=== PATIENT | female | born 1935 | race Caucasian/White ===

== ENCOUNTER 2018-05-27 10:07 | Day surgery (SDC) | payer OTHER ==
[2018-05-19 17:00] VITALS: BMI 30.2
[2018-05-27 13:51] VITALS: TEMP 97.8
[2018-05-27 14:05] VITALS: BP 132/86; PULSE 70
--- NOTE | 2018-05-28 11:31 | PATH ---
Surgical Pathology Report Patient Name: KAMLESH MIJARES [facility]. Rec. #: [id number] /Age/Gender: 1935 (Age: 82) / F Account: [id number] Location: Taken: 05/27/2018 Received: 05/27/2018 Reported: 05/28/2018 Physicians: Johnna Miguel M.D. Specimen(s) Received A: BX SIGMOID 30 CM B: BX SIGMOID 20 CM C: RECTO SIGMOID JUNCTION Clinical History History of polyps Postoperative diagnosis: Polyps Final Diagnosis A. SIGMOID, 30 CM, POLYP, POLYPECTOMY: HYPERPLASTIC POLYP. B. SIGMOID, 20 CM, POLYP, POLYPECTOMY: HYPERPLASTIC POLYP. C. RECTOSIGMOID JUNCTION, POLYP, POLYPECTOMY: HYPERPLASTIC POLYP. Electronically Signed Florian Moreira M.D. Gross Description A. Received in formalin, labeled "sigmoid 30 cm" are 5 chavez, irregular portions of soft tissue ranging from 0.2-0.3 cm. in greatest dimension. The specimens are submitted in toto in one cassette. B. Received in formalin, labeled "sigmoid 20 cm" are 2 chavez, irregular portions of soft tissue measuring 0.2 and 0.3 cm. in greatest dimension. The specimens are submitted in toto in one cassette. C. Received in formalin, labeled "rectosigmoid junction" are 2 chavez, irregular portions of soft tissue measuring 0.1 and 0.4 cm. in greatest dimension. The specimens are submitted in toto in one cassette. DL/05/27/2018 saudi/05/27/2018
== END 2018-05-27 13:00 | disposition home or self-care (01) ==
LOC: FASU-ENDO 10:07
PROVIDERS: ATTEND Internal Medicine Gastroenterology
PROC: 0DBN8ZX Excision of Sigmoid Colon, Via Natural or Artificial Opening Endoscopic, Diagnostic (ICD-10-PCS; principal; 2018-05-27 11:35)
DX: Z09 Encounter for follow-up examination after completed treatment for conditions other than malignant neoplasm (principal); Z86.010 Personal history of colon polyps; K63.5 Polyp of colon; K57.30 Diverticulosis of large intestine without perforation or abscess without bleeding; K64.8 Other hemorrhoids
CPT/HCPCS: 88305-TC

== ENCOUNTER 2023-08-22 04:39 | Day surgery (SDC) | payer OTHER ==
[2023-08-20 15:35] VITALS: BMI 31.1
[2023-08-22] MEDS ORDERED: ACETAMINOPHEN 1000 MG/100 ML BAG IVPB ONE ×3 (15:48→17:23)
[2023-08-22] MEDS ORDERED: ONDANSETRON 4 MG/2 ML VIAL IVPUSH PRN (15:51)
[2023-08-22] MEDS ORDERED: PROMETHAZINE HCL 25 MG/1 ML VIAL IVPB PRN (15:51)
[2023-08-22] MEDS ORDERED: LACTATED RINGERS SOLUTION 1,000 ML IV SCH (16:00)
[2023-08-22] MEDS ORDERED: DEXTROSE 5%-0.45% SALINE 1,000 ML IV SCH (16:00)
[2023-08-22] MEDS ORDERED: PROPOFOL 20 ML ONE (16:03)
[2023-08-22] MEDS ORDERED: FENTANYL CITRATE/PF 50 MCG/ML VIAL ONE (16:04)
[2023-08-22] MEDS ORDERED: LIDOCAINE HCL/PF 2% SDV 5ML VIAL ONE (16:04)
[2023-08-22] MEDS ORDERED: SODIUM CHLORIDE 0.9% P/F 10 ML VIAL IJ ONE (16:04)
[2023-08-22] MEDS ORDERED: ceFAZolin SODIUM 1 GM VIAL ONE (16:04)
[2023-08-22] MEDS ORDERED: DEXAMETHASONE SOD PHOSPHATE 4 MG/1 ML VIAL ONE (16:07)
[2023-08-22] MEDS ORDERED: ONDANSETRON 4 MG/2 ML VIAL ONE (16:07)
[2023-08-22] MEDS ORDERED: ACETAMINOPHEN INJECTION 100 ML IVPB ONE (17:20)
[2023-08-22 18:15] VITALS: RESP 16
[2023-08-22 19:14] VITALS: BP 140/80; PULSE 77; TEMP 97.3
== END 2023-08-22 19:10 | disposition home or self-care (01) ==
LOC: JASU-SURG 04:39
PROVIDERS: ATTEND Urology
PROC: 0TBB8ZZ Excision of Bladder, Via Natural or Artificial Opening Endoscopic (ICD-10-PCS; principal; 2023-08-22 16:00)
DX: C67.9 Malignant neoplasm of bladder, unspecified (principal)
CPT/HCPCS: 88307-TC; 94760

== ENCOUNTER 2023-10-17 04:18 | Day surgery (SDC) | payer OTHER ==
[2023-10-09 16:15] VITALS: BMI 31.1
[2023-10-17] MEDS ORDERED: mitoMYcin 40 MG/50 ML DISP.SYRIN (FOR OR USE) IC ONE (14:15)
[2023-10-17] MEDS ORDERED: SUCCINYLCHOLINE CHLORIDE 200 MG/10 ML SYRINGE ONE (15:37)
[2023-10-17] MEDS ORDERED: ACETAMINOPHEN INJECTION 100 ML IVPB ONE (15:38)
[2023-10-17] MEDS ORDERED: PROPOFOL 20 ML ONE (15:39)
[2023-10-17] MEDS ORDERED: MIDAZOLAM HCL 2 MG/2 ML SINGLE DOSE VIAL ONE (15:39)
[2023-10-17] MEDS ORDERED: SODIUM CHLORIDE 0.9% P/F 10 ML VIAL IJ ONE (15:40)
[2023-10-17] MEDS ORDERED: KETOROLAC TROMETHAMINE 30 MG/1 ML VIAL ONE (15:40)
[2023-10-17] MEDS ORDERED: ONDANSETRON 4 MG/2 ML VIAL ONE (15:40)
[2023-10-17] MEDS ORDERED: LIDOCAINE HCL/PF 2% SDV 5ML VIAL ONE ×2 (15:40)
[2023-10-17] MEDS ORDERED: DEXAMETHASONE SOD PHOSPHATE 4 MG/1 ML VIAL ONE (15:40)
[2023-10-17] MEDS ORDERED: DEXTROSE 5%-0.45% SALINE 1,000 ML IV SCH (16:00)
[2023-10-17] MEDS: ceFAZolin SODIUM 1 GM VIAL IVPB ONE (16:07)
[2023-10-17] MEDS ORDERED: oxyCODONE HCL 5 MG TABLET PO PRN (16:39)
[2023-10-17] MEDS ORDERED: ONDANSETRON 4 MG/2 ML VIAL IVPUSH PRN (16:39)
[2023-10-17 18:39] VITALS: RESP 20; TEMP 97.6
[2023-10-17 18:41] VITALS: BP 132/64; PULSE 60
== END 2023-10-17 18:34 | disposition home or self-care (01) ==
LOC: JASU-SURG 04:18
PROVIDERS: ATTEND Urology
PROC: 3E0K805 Introduction of Other Antineoplastic into Genitourinary Tract, Via Natural or Artificial Opening Endoscopic (ICD-10-PCS; 2023-10-17)
PROC: 0TBB8ZZ Excision of Bladder, Via Natural or Artificial Opening Endoscopic (ICD-10-PCS; principal; 2023-10-17 15:00)
DX: C67.9 Malignant neoplasm of bladder, unspecified (principal)
CPT/HCPCS: 86850; 86900; 86901; 88307-TC; 88342-TC; 94760; J0131

== ENCOUNTER 2024-03-17 04:20 | Day surgery (SDC) | payer OTHER ==
[2024-03-12 12:56] VITALS: BMI 32.1
[2024-03-17] MEDS ORDERED: mitoMYcin 40 MG/50 ML DISP.SYRIN (FOR OR USE) IC ONE (10:00)
[2024-03-17] MEDS ORDERED: PROPOFOL 20 ML ONE (11:14)
[2024-03-17] MEDS ORDERED: DEXTROSE 5%-0.45% SALINE 1,000 ML IV SCH (11:15)
[2024-03-17] MEDS ORDERED: ONDANSETRON 4 MG/2 ML VIAL ONE (11:49)
[2024-03-17] MEDS ORDERED: ceFAZolin SODIUM 1 GM VIAL ONE (11:49)
[2024-03-17] MEDS ORDERED: DEXAMETHASONE SOD PHOSPHATE 4 MG/1 ML VIAL ONE (11:49)
[2024-03-17] MEDS ORDERED: KETOROLAC TROMETHAMINE 30 MG/1 ML VIAL ONE (11:49)
[2024-03-17] MEDS: ceFAZolin SODIUM 1 GM VIAL IVPB ONE (11:50)
[2024-03-17] MEDS ORDERED: LACTATED RINGERS SOLUTION 1,000 ML IV SCH (12:30)
[2024-03-17 14:11] VITALS: RESP 18; TEMP 97
[2024-03-17 16:45] VITALS: BP 141/68; PULSE 60
== END 2024-03-17 15:35 | disposition home or self-care (01) ==
LOC: JASU-SURG 04:20
PROVIDERS: ATTEND Urology
PROC: 3E0K805 Introduction of Other Antineoplastic into Genitourinary Tract, Via Natural or Artificial Opening Endoscopic (ICD-10-PCS; 2024-03-17)
PROC: 0TBB8ZX Excision of Bladder, Via Natural or Artificial Opening Endoscopic, Diagnostic (ICD-10-PCS; principal; 2024-03-17 12:00)
DX: C67.9 Malignant neoplasm of bladder, unspecified (principal)
CPT/HCPCS: 88305-TC; 88342-TC; 94760

== ENCOUNTER 2024-12-01 05:32 | Day surgery (SDC) | payer OTHER ==
[2024-11-26 11:37] VITALS: BMI 30.8
[2024-12-01] MEDS ORDERED: BOTULINUM TOXIN A 100 UNITS VIAL IM ONE (08:41)
[2024-12-01] MEDS ORDERED: PROPOFOL 40 ML ONE (12:23)
[2024-12-01] MEDS ORDERED: MIDAZOLAM HCL 2 MG/2 ML SINGLE DOSE VIAL ONE (12:24)
[2024-12-01] MEDS: ceFAZolin SODIUM 1 GM VIAL IVPB ONE (12:37)
[2024-12-01] MEDS ORDERED: ONDANSETRON 4 MG/2 ML VIAL IVPUSH PRN ×2 (13:03→14:22)
[2024-12-01] MEDS: LACTATED RINGERS SOLUTION 1,000 ML IV SCH (13:15)
[2024-12-01 14:13] VITALS: RESP 17
[2024-12-01 14:21] VITALS: TEMP 97.1
[2024-12-01 14:53] VITALS: BP 152/76; PULSE 74
== END 2024-12-01 15:00 | disposition home or self-care (01) ==
LOC: JASU-SURG 05:32
PROVIDERS: ATTEND Urology
PROC: 3E0K8GC Introduction of Other Therapeutic Substance into Genitourinary Tract, Via Natural or Artificial Opening Endoscopic (ICD-10-PCS; principal; 2024-12-01 14:30)
PROC: 0TJB8ZZ Inspection of Bladder, Via Natural or Artificial Opening Endoscopic (ICD-10-PCS; 2024-12-01 14:30)
PROC: 0T5B8ZZ Destruction of Bladder, Via Natural or Artificial Opening Endoscopic (ICD-10-PCS; 2024-12-01 14:30)
DX: C67.2 Malignant neoplasm of lateral wall of bladder (principal); N39.41 Urge incontinence; N32.81 Overactive bladder
CPT/HCPCS: 88307-TC; 88342-TC; 94760

== ENCOUNTER 2025-05-06 06:16 | Day surgery (SDC) | payer OTHER ==
[2025-05-05 14:28] VITALS: BMI 31.4
[2025-05-06] MEDS ORDERED: PROPOFOL 20 ML ONE (13:01)
[2025-05-06] MEDS ORDERED: ETOMIDATE 20 MG/10 ML VIAL IVPUSH ONE (13:01)
[2025-05-06] MEDS: ceFAZolin 2 GRAM PREMIX BAG IVPB ONE (13:15)
[2025-05-06] MEDS: DEXTROSE 5%-0.45% SALINE 1,000 ML IV SCH (14:27)
[2025-05-06] MEDS ORDERED: LACTATED RINGERS SOLUTION 1,000 ML IV SCH (14:30)
[2025-05-06] MEDS: ACETAMINOPHEN 1000 MG/100 ML BAG IVPB ONE (14:33)
[2025-05-06 16:28] VITALS: PULSE 53
[2025-05-06 16:46] VITALS: BP 155/66; RESP 18; TEMP 98
[2025-05-06] MEDS ORDERED: ONDANSETRON 4 MG/2 ML VIAL ONE (16:56)
[2025-05-06] MEDS: ONDANSETRON 4 MG/2 ML VIAL IVPUSH PRN (17:01)
[2025-05-06] MEDS ORDERED: ONDANSETRON *ODT* 4 MG TABLET ONE (18:07)
[2025-05-06] MEDS ORDERED: ONDANSETRON *ODT* 4 MG TABLET SL ONE (18:08)
== END 2025-05-06 18:55 | disposition home or self-care (01) ==
LOC: JASU-SURG 06:16
PROVIDERS: ATTEND Urology
PROC: 0TBB8ZZ Excision of Bladder, Via Natural or Artificial Opening Endoscopic (ICD-10-PCS; principal; 2025-05-06 12:30)
PROC: 0T9780Z Drainage of Left Ureter with Drainage Device, Via Natural or Artificial Opening Endoscopic (ICD-10-PCS; 2025-05-06 12:30)
DX: D41.4 Neoplasm of uncertain behavior of bladder (principal); N13.30 Unspecified hydronephrosis; Z85.51 Personal history of malignant neoplasm of bladder
CPT/HCPCS: 76000-TC-FY; 88307-TC; 94760; C2617; Q0162